=== PATIENT | female | born 1970 | race Caucasian/White ===

== ENCOUNTER 2017-09-03 11:36 | Outpatient (CLI) | payer BC | END 2017-09-03 11:37 | disposition home or self-care (01) | LOC: BICMAMMO 11:36 | PROVIDERS: ATTEND Obstetrics & Gynecology | DX: Z12.31 Encounter for screening mammogram for malignant neoplasm of breast (principal) | CPT/HCPCS: 77063; 77067 ==

== ENCOUNTER 2019-01-02 10:25 | Outpatient (CLI) | payer BC ==
--- NOTE | 2019-01-02 11:09 | RAD ---
Exam:3 views right hand HISTORY: Pain x2 months COMPARISON: None FINDINGS: No fracture, cortical irregularity or periosteal reaction. Joint spaces are preserved. IMPRESSION: Unremarkable 3 views right hand
== END 2019-01-02 10:26 | disposition home or self-care (01) ==
LOC: SCSRAD 10:25
PROVIDERS: ATTEND Family Medicine
DX: M79.641 Pain in right hand (principal); E55.9 Vitamin D deficiency, unspecified
CPT/HCPCS: 36415; 82306; 84550

== ENCOUNTER 2020-07-25 10:27 | Outpatient (CLI) | payer BC ==
[2020-07-25 14:30] LABS: Bilirubin Negative (Negative); Blood, Urine Negative (Negative); Glucose, Urine (Dipstick) Negative (Negative); Ketone, Urine Negative (Negative); Leukocyte Negative (Negative); Nitrite Negative (Negative); Protein, Urine (Dipstick) Negative (Neg-Trace); Urobilinogen 0.2 mg/dL (Less than 2)
[2020-07-25 14:37] LABS: Clarity Clear (Clear)
[2020-07-25 14:38] LABS: Bacteria/HPF None Seen HPF (None Seen); RBC/HPF 0-3 HPF (0-3); Squamous Epithelial None Seen HPF (0-3); WBC/HPF 0-3 HPF (0-3)
== END 2020-07-25 10:28 | disposition home or self-care (01) ==
LOC: SCSRAD 10:27
PROVIDERS: ATTEND Family Medicine
DX: R06.02 Shortness of breath (principal); R31.29 Other microscopic hematuria
CPT/HCPCS: 71046; 81001; 87086